=== PATIENT | male | born 1995 | race African-American/Black ===

== ENCOUNTER 2020-06-06 09:19 | Outpatient (CLI) | payer BC, SELFPAY ==
--- NOTE | ~2020-06-06 | XR_ITS ---
EXAMINATION: XR lumbar spine 6V w bending DATE: 06/06/2020 09:41 INDICATION: Low back pain. TECHNIQUE: 7 views of lumbar spine including flexion and extension views were obtained. COMPARISON: None. FINDINGS: Bone alignment is normal. The spine is hypomobile with flexion and extension. Vertebral bod y heights and intervertebral disc heights are normal. There is mild facet joint osteoarthritis bilate rally at L5-S1. IMPRESSION: 1. Mild bilateral facet joint osteoarthritis at L5-S1. Reviewed, dictated and finalized at location B. [employer]
== END 2020-06-06 09:20 | disposition home or self-care (01) ==
PROVIDERS: Family Provider Pediatrics; PCP Family Medicine; Visit Provider Family Medicine
DX: M54.5 Low back pain (principal); M51.36 Other intervertebral disc degeneration, lumbar region
CPT/HCPCS: 72114